=== PATIENT | female | born 1950 ===

== ENCOUNTER 2019-05-16 13:15 | Inpatient (IN) | payer OTHER ==
[~2019-05-16] VITALS: Ht 157.5 cm; Wt 81.6 kg
[2019-05-16] MEDS ORDERED: SINGULAIR10 MG PO (15:17)
== END 2019-05-27 12:25 | disposition home or self-care (01) | DRG 743 ==
LOC: O/R 13:15 → OB/GYN 05-24 04:55 → SURH 05-24 13:15 → OB/GYN 05-27 12:25
PROVIDERS: Urology; ADMIT Obstetrics & Gynecology
PROC: 0UT20ZZ Resection of Bilateral Ovaries, Open Approach (ICD-10-PCS; 2019-05-24)
PROC: 0UT90ZZ Resection of Uterus, Open Approach (ICD-10-PCS; principal; 2019-05-24 10:00)
PROC: 0UT70ZZ Resection of Bilateral Fallopian Tubes, Open Approach (ICD-10-PCS; 2019-05-24 10:00)
DX: D25.1 Intramural leiomyoma of uterus (principal); D25.2 Subserosal leiomyoma of uterus; N85.8 Other specified noninflammatory disorders of uterus; N72 Inflammatory disease of cervix uteri; N83.332 Acquired atrophy of left ovary and fallopian tube; N83.331 Acquired atrophy of right ovary and fallopian tube